=== PATIENT | female | born 1965 | race Caucasian/White ===

== ENCOUNTER 2017-04-13 18:27 | Emergency (ER) | payer BC ==
[2017-04-13 18:42] VITALS: PULSE 80; TEMP 98.2; BMI 24.1
[2017-04-13 18:43] VITALS: BP 127/80
--- NOTE | 2017-04-13 19:42 | PDOC ---
History of Present Illness - General History Source: Patient Exam Limitations: No Limitations - History of Present Illness Initial Comments: 04/13/17 20:02 The patient is a 51 year old female with no significant past medical history, who presents to the ED with right sided neck pain radiating down the right shoulder. Patient states the pain first began as neck pain three days ago. Patient denies any recent trauma. Patient denies any chest pain, headache, fever , chills, nausea, vomiting, diarrhea. Patient denies dysuria, frequency, hematuria. Patient is right hand dominant. Patient states she drinks alcohol socially. Patient denies smoking cigarettes. Patient denies drug use. Past surgical history: Liposuction two months ago. 1 . Uterine Prolapse two years ago. <Aston Calabrese - Last Filed: 04/13/17 20:02> <Vinayak Garcia - Last Filed: 04/13/17 22:08> - General Chief Complaint: Pain Stated Complaint: RIGHT NECK PAIN Past History <Aston Calabrese - Last Filed: 04/13/17 20:02> - Psycho/Social/Smoking Cessation Hx Anxiety: No Suicidal Ideation: No Smoking History: Never smoked Hx Alcohol Use: Yes (SOCIAL) Drug/Substance Use Hx: No Substance Use Type: None <Vinayak Garcia - Last Filed: 04/13/17 22:08> - Past Medical History Allergies/Adverse Reactions: Allergies Allergy/AdvReac Type Severity Reaction Status Date / Time kiwi Allergy Severe Swelling Verified 04/13/17 18:30 LOBSTER Allergy Severe Swelling Uncoded 04/13/17 18:30 Home Medications: Ambulatory Orders Diazepam [Valium] 5 mg PO Q8H #15 tablet MDD 3 04/13/17 Oxycodone HCl/Acetaminophen [Percocet 5-325 mg Tablet] 1 - 2 tab PO Q6H #20 tab MDD 8 04/13/17 Review of Systems - Review of Systems Able to Perform ROS?: Yes Comments:: 04/13/17 20:02 GENERAL/CONSTITUTIONAL: No fever or chills. No weakness. HEAD, EYES, EARS, NOSE AND THROAT: No change in vision. No ear pain or discharge. No sore throat. CARDIOVASCULAR: No chest pain or shortness of breath. RESPIRATORY: No cough, wheezing, or hemoptysis. GASTROINTESTINAL: No nausea, vomiting, diarrhea or constipation. GENITOURINARY: No dysuria, frequency, or change in urination. MUSCULOSKELETAL: + right sided neck spasms radiating down the right arm. SKIN: No rash NEUROLOGIC: No headache, vertigo, loss of consciousness, or change in strength/ sensation. ENDOCRINE: No increased thirst. No abnormal weight change. HEMATOLOGIC/LYMPHATIC: No anemia, easy bleeding, or history of blood clots. ALLERGIC/IMMUNOLOGIC: No hives or skin allergy. <Aston Calabrese - Last Filed: 04/13/17 20:02> *Physical Exam - Vital Signs Last Vital Signs Temp Pulse Resp BP Pulse Ox 98.2 F 80 16 127/80 100 04/13/17 18:28 04/13/17 18:28 04/13/17 18:28 04/13/17 18:42 04/13/17 18:28 - Physical Exam Comments: 04/13/17 20:03 GENERAL: Awake, alert, and fully oriented, in no acute distress HEAD: No signs of trauma EYES: PERRLA, EOMI, sclera anicteric, conjunctiva clear ENT: Auricles normal inspection, hearing grossly normal, nares patent, oropharynx clear without exudates. Moist mucosa NECK: Spasms on right sternocleidomastoid muscle. Spasms on right side of neck. Limited range of motion due to pain. Subtle weakness in the innervation of c5- c6 of the right arm. No lymphadenopathy, JVD, or masses LUNGS: Breath sounds equal, clear to auscultation bilaterally. No wheezes, and no crackles HEART: Regular rate and rhythm, normal S1 and S2, no murmurs, rubs or gallops ABDOMEN: Soft, nontender, normoactive bowel sounds. No guarding, no rebound. No masses EXTREMITIES: Normal range of motion, no edema. No clubbing or cyanosis. No cords, erythema, or tenderness NEUROLOGICAL: Cranial nerves II through XII grossly intact. Normal speech, normal gait SKIN: Warm, Dry, normal turgor, no rashes or lesions noted. <Aston Calabrese - Last Filed: 04/13/17 20:02> - Vital Signs Last Vital Signs Temp Pulse Resp BP Pulse Ox 98.2 F 80 16 127/80 100 04/13/17 18:28 04/13/17 18:28 04/13/17 18:28 04/13/17 18:42 04/13/17 18:28 <Vinayak Garcia - Last Filed: 04/13/17 22:08> ED Treatment Course - Medications Given in the ED: ED Medications Discontinued Medications Generic Name Dose Route Start Last Admin Trade Name Samanta PRN Reason Stop Dose Admin Diazepam 10 mg 04/13/17 19:44 04/13/17 19:58 Valium - PO 04/13/17 19:45 10 mg ONCE ONE Administration Ibuprofen 800 mg 04/13/17 19:44 04/13/17 19:52 Motrin - PO 04/13/17 19:45 800 mg ONCE ONE Administration Ondansetron HCl 8 mg 04/13/17 19:44 04/13/17 19:58 Zofran Odt - SL 04/13/17 19:45 8 mg ONCE ONE Administration Oxycodone/Acetaminophen 2 combo 04/13/17 19:44 04/13/17 19:55 Percocet 5/325 - PO 04/13/17 19:45 2 combo ONCE ONE Administration <Aston Calabrese - Last Filed: 04/13/17 20:02> *DC/Admit/Observation/Transfer - Attestations Scribe Attestion: 04/13/17 20:04 Documentation prepared by Aston Calabrese, acting as bio medical technician for Vinayak Garcia MD. <Aston Calabrese - Last Filed: 04/13/17 20:02> - Attestations Physician Attestion: 04/13/17 19:41 I, Dr. Vinayak Garcia, attest that this document has been prepared under my direction and personally reviewed by me in its entirety. I further attest, that it accurately reflects all work, treatment, procedures and medical decision -making performed by me. <Vinayak Garcia - Last Filed: 04/13/17 22:08> Diagnosis at time of Disposition: Acute torticollis - Discharge Dispostion Disposition: HOME Condition at time of disposition: Improved - Prescriptions Prescriptions: Oxycodone HCl/Acetaminophen [Percocet 5-325 mg Tablet] 1 - 2 tab PO Q6H #20 tab MDD 8 Diazepam [Valium] 5 mg PO Q8H #15 tablet MDD 3 - Referrals Referrals: Dennis Fay [Primary Care Provider] - - Patient Instructions Printed Discharge Instructions: DI for Torticollis Additional Instructions: Mrs Newberry- Sorry this is so painful. Please take a day or two off work, follow up with your regular doctor and use the valium for spasm and the percocet for pain. Return to us if any problems. Hope you feel better soon Dr. Vinayak Garcia
[2017-04-13] MEDS ORDERED: diazePAM 5 MG TABLET PO ONE (19:44)
[2017-04-13] MEDS ORDERED: ONDANSETRON *ODT* 4 MG TABLET SL ONE (19:44)
[2017-04-13] MEDS ORDERED: IBUPROFEN 400 MG TABLET (FP) PO ONE ×2 (19:44→19:48)
[2017-04-13] MEDS ORDERED: ONDANSETRON *ODT* 4 MG TABLET ONE (19:49)
[2017-04-13] MEDS ORDERED: diazePAM 5 MG TABLET ONE (19:49)
== END 2017-04-13 22:15 | disposition home or self-care (01) ==
LOC: FER 18:27
DX: M43.6 Torticollis (principal); Z91.013 Allergy to seafood; Z91.018 Allergy to other foods
CPT/HCPCS: 72125-TC; 73030-TC-RT; 99282-25